=== PATIENT | male | born 1950 | race Caucasian/White ===

== ENCOUNTER 2018-03-11 15:11 | Outpatient (REF) | payer MEDICARE, SELFPAY ==
[2018-03-11 19:50] LABS: ALT 24 U/L (12-78); AST 20 U/L (15-37); Albumin 3.7 g/dL (3.4-5.0); Alkaline Phosphatase 76 U/L (46-116); Anion Gap 12.8 mmol/L (3-11); BUN 28 mg/dL (7-18); Bilirubin, Total 0.7 mg/dL (0.2-1.0); CO2 24.2 mmol/L (21.0-32.0); CREATININE 1.42 mg/dL (0.70-1.30); Calcium 9.7 mg/dL (8.5-10.1); Chloride 102 mmol/L (98-107); Estimated GFR 49.43 (mL/min/1.73m2); Glucose 184 mg/dL (70-100); Potassium 4.4 mmol/L (3.5-5.1); Sodium 139 mmol/L (136-145)
[2018-03-12 17:12] LABS: COMMENT (LAB VIEW ONLY) 400.22 mg/dL; Microalb ug/mg Crea 18.4 ug/mg Cr
== END 2018-03-11 15:31 ==
LOC: NCHCN 15:11
PROVIDERS: PCP Physician Assistant Medical; Visit Provider Physician Assistant Medical
DX: N28.9 Disorder of kidney and ureter, unspecified (principal); R94.5 Abnormal results of liver function studies
CPT/HCPCS: 80053; 82043; 82570; 87086

== ENCOUNTER 2018-03-13 14:51 | Outpatient (REF) | payer MEDICARE, SELFPAY ==
[2018-03-13 20:00] LABS: Epithelial Cells Few HPF (Negative); RBC Negative (0-2)
[2018-03-13 20:01] LABS: Bacteria Negative HPF (Negative); C & S Indicated? Yes; Casts Negative LPF (Negative); Crystals Few Amorphous HPF (Negative); Mucus Trace (Negative)
== END 2018-03-13 15:11 ==
LOC: NCHCN 14:51
PROVIDERS: PCP Physician Assistant Medical; Visit Provider Physician Assistant Medical
DX: R31.9 Hematuria, unspecified (principal)
CPT/HCPCS: 81015; 87086

== ENCOUNTER → 2018-03-19 14:20 | Outpatient (BNVA) | payer MEDICARE, SELFPAY | PROVIDERS: PCP Physician Assistant Medical; Referring Provider Physician Assistant Medical; Visit Provider Nurse Practitioner Gerontology | DX: R31.29 Other microscopic hematuria (principal); E11.9 Type 2 diabetes mellitus without complications | CPT/HCPCS: 81003; 99204; 99215 ==

== ENCOUNTER 2019-03-25 17:22 | Outpatient (REF) | payer MEDICARE, SELFPAY ==
[2019-03-25 20:10] LABS: Anion Gap 10.5 mmol/L (3-11); BUN 21 mg/dL (7-18); CO2 27.5 mmol/L (21.0-32.0); Chloride 104 mmol/L (98-107); Estimated GFR 59.86 (mL/min/1.73m2); Glucose 128 mg/dL (74-106); Potassium 4.1 mmol/L (3.5-5.1); Sodium 142 mmol/L (136-145)
[2019-03-25 20:18] LABS: Hemoglobin A1C 7.5 % (3.8-5.6)
== END 2019-03-25 17:42 ==
LOC: NCHCN 17:22
PROVIDERS: PCP Physician Assistant Medical; Visit Provider Nurse Practitioner Family
DX: E11.9 Type 2 diabetes mellitus without complications (principal); N28.9 Disorder of kidney and ureter, unspecified
CPT/HCPCS: 80048; 83036

== ENCOUNTER 2020-07-13 16:26 | Outpatient (REF) | payer MEDICARE, SELFPAY ==
[2020-07-13 19:20] LABS: COMMENT (LAB VIEW ONLY) 140.08 mg/dL; Microalb ug/mg Crea 5.5 ug/mg Cr
== END 2020-07-13 16:27 | disposition home or self-care (01) ==
LOC: NCHCN 16:26
PROVIDERS: PCP Physician Assistant Medical; Visit Provider Physician Assistant
DX: E11.9 Type 2 diabetes mellitus without complications (principal)
CPT/HCPCS: 82043; 82570

== ENCOUNTER 2020-10-25 17:13 | Outpatient (REF) | payer MEDICARE, SELFPAY ==
[2020-10-25 20:18] LABS: Anion Gap 9.8 mmol/L (3-11); BUN 13 mg/dL (7-18); CO2 27.2 mmol/L (21.0-32.0); CREATININE 1.5 mg/dL (0.70-1.30); Calcium 9.1 mg/dL (8.5-10.1); Chloride 107 mmol/L (98-107); Glucose 218 mg/dL (74-106); Potassium 4.8 mmol/L (3.5-5.1); Sodium 144 mmol/L (136-145)
== END 2020-10-25 17:14 | disposition home or self-care (01) ==
LOC: NCHCN 17:13
PROVIDERS: PCP Physician Assistant Medical; Visit Provider Physician Assistant
DX: E11.9 Type 2 diabetes mellitus without complications (principal)
CPT/HCPCS: 80048

== ENCOUNTER 2021-10-24 19:21 | Outpatient (REF) | payer MEDICARE, SELFPAY ==
[2021-10-24 20:12] LABS: Abs Immature Grans 0.02 10^3/uL (0.0-0.06); Absolute Basophil Count 0.03 10^3/uL (0.0-0.2); Absolute Eosinophil Count 0.15 10^3/uL (0.0-0.7); Absolute Lymphocyte Count 1.47 10^3/uL (1.2-3.4); Absolute Monocyte Count 0.43 10^3/uL (0.1-0.8); Absolute Neutrophil Count 5.58 10^3/uL (1.2-6.7); Basophils % 0.4; HCT 40.9 % (40.0-50.0); Immature Grans % 0.3; Lymphocytes % 19.1; MCH 29.7 pg (27.0-33.0); MCHC 31.8 % (32.0-36.0); MCV 93 fL (80-95); MPV 9.9 fL (8.0-11.0); Monocytes % 5.6; Neutrophils % 72.6; Platelet Count 205 10^3/uL (130-400); RBC 4.38 10^6/uL (4.36-5.78); RDW 14.1 % (11.8-14.1); RDW-SD 48.9 fL; WBC 7.68 10^3/uL (4.4-10.8)
[2021-10-24 20:29] LABS: ALT 33 U/L (16-63); AST 34 U/L (15-37); Albumin 3.6 g/dL (3.4-5.0); Alkaline Phosphatase 80 U/L (46-116); Anion Gap 9.8 mmol/L (3-11); BUN 27 mg/dL (7-18); Bilirubin, Total 0.5 mg/dL (0.2-1.0); CO2 26.2 mmol/L (21.0-32.0); CREATININE 2.2 mg/dL (0.70-1.30); Calcium 9.3 mg/dL (8.5-10.1); Chloride 104 mmol/L (98-107); Estimated GFR 30.85 (mL/min/1.73m2); Glucose 145 mg/dL (74-106); Potassium 4.7 mmol/L (3.5-5.1); Sodium 140 mmol/L (136-145); TSH (W/Ref FT4) 1.53 uIU/mL (0.36-3.74); Total Protein 8.2 g/dL (6.4-8.2); Uric Acid 11.2 mg/dL (3.5-7.2)
[2021-10-25 18:42] LABS: PSA, Screening 0.7 ng/mL (<=6.5)
== END 2021-10-24 19:22 | disposition home or self-care (01) ==
LOC: NCHCN 19:21
PROVIDERS: PCP Physician Assistant Medical; Visit Provider Physician Assistant
DX: E11.9 Type 2 diabetes mellitus without complications (principal); I50.9 Heart failure, unspecified; R63.4 Abnormal weight loss; Z12.5 Encounter for screening for malignant neoplasm of prostate
CPT/HCPCS: 80053; 84153; 84443; 84550; 85025

== ENCOUNTER 2021-11-22 19:01 | Outpatient (REF) | payer MEDICARE, SELFPAY ==
[2021-11-22 21:28] LABS: Anion Gap 9.4 mmol/L (3-11); BUN 53 mg/dL (7-18); CO2 25.6 mmol/L (21.0-32.0); Calcium 9.8 mg/dL (8.5-10.1); Chloride 102 mmol/L (98-107); Estimated GFR 21.26 (mL/min/1.73m2); Glucose 169 mg/dL (74-106); Potassium 4.7 mmol/L (3.5-5.1); Sodium 137 mmol/L (136-145); Uric Acid 10.3 mg/dL (3.5-7.2)
== END 2021-11-22 19:02 | disposition home or self-care (01) ==
LOC: NCHCN 19:01
PROVIDERS: PCP Physician Assistant Medical; Visit Provider Physician Assistant
DX: M10.9 Gout, unspecified (principal); N18.30 Chronic kidney disease, stage 3 unspecified
CPT/HCPCS: 80048; 84550

== ENCOUNTER 2021-12-19 16:52 | Outpatient (REF) | payer MEDICARE, SELFPAY ==
[2021-12-19 18:47] LABS: Anion Gap 11.2 mmol/L (3-11); BUN 31 mg/dL (7-18); CO2 24.8 mmol/L (21.0-32.0); Calcium 9.4 mg/dL (8.5-10.1); Chloride 105 mmol/L (98-107); Estimated GFR 15.52 (mL/min/1.73m2); Glucose 145 mg/dL (74-106); Potassium 4.9 mmol/L (3.5-5.1); Sodium 141 mmol/L (136-145); Uric Acid 11.1 mg/dL (3.5-7.2)
[2021-12-19 19:14] LABS: CREATININE 3.9 mg/dL (0.70-1.30)
== END 2021-12-19 16:53 | disposition home or self-care (01) ==
LOC: NCHCN 16:52
PROVIDERS: PCP Physician Assistant Medical; Visit Provider Physician Assistant
DX: N18.30 Chronic kidney disease, stage 3 unspecified (principal); M10.9 Gout, unspecified
CPT/HCPCS: 80048; 84550

== ENCOUNTER 2023-02-26 15:29 | Outpatient (REF) | payer MEDICARE, SELFPAY ==
[2023-02-26 19:55] LABS: ALT 43 U/L (16-63); AST 29 U/L (15-37); Albumin 3.9 g/dL (3.4-5.0); Alkaline Phosphatase 83 U/L (46-116); BUN 31 mg/dL (7-18); Bilirubin, Total 0.7 mg/dL (0.2-1.0); CREATININE 1.8 mg/dL (0.70-1.30); Chloride 103 mmol/L (98-107); Estimated GFR 39.01 (mL/min/1.73m2); Glucose 231 mg/dL (74-106); Potassium 4.3 mmol/L (3.5-5.1); Sodium 138 mmol/L (136-145); Total Protein 8.5 g/dL (6.4-8.2)
[2023-02-26 20:38] LABS: Hemoglobin A1C 6.9 % (<5.7)
[2023-02-27 19:33] LABS: Hepatitis C Ab w Rflx HCV PCR Negative (Negative)
== END 2023-02-26 15:30 | disposition home or self-care (01) ==
LOC: NCHCN 15:29
PROVIDERS: PCP Physician Assistant Medical; Visit Provider Physician Assistant
DX: E11.9 Type 2 diabetes mellitus without complications (principal); N18.30 Chronic kidney disease, stage 3 unspecified; Z11.59 Encounter for screening for other viral diseases
CPT/HCPCS: 80053; 86803; 83036

== ENCOUNTER 2024-01-15 15:22 | Outpatient (REF) | payer MEDICARE, SELFPAY ==
[2024-01-15 20:07] LABS: Abs Immature Grans 0.02 10^3/uL (0.0-0.06); Absolute Basophil Count 0.05 10^3/uL (0.0-0.2); Absolute Eosinophil Count 0.22 10^3/uL (0.0-0.7); Absolute Lymphocyte Count 1.16 10^3/uL (1.2-3.4); Absolute Monocyte Count 0.46 10^3/uL (0.1-0.8); Absolute Neutrophil Count 6.74 10^3/uL (1.2-6.7); Basophils % 0.6 %; Eosinophils % 2.5 %; HGB 14.3 g/dL (13.5-17.5); Immature Grans % 0.2 %; Lymphocytes % 13.4 %; MCH 31.1 pg (27.0-33.0); MCHC 33.3 % (32.0-36.0); MCV 94 fL (80-95); MPV 10.2 fL (8.0-11.0); Monocytes % 5.3 %; Platelet Count 221 10^3/uL (130-400); RDW 14.1 % (11.8-14.1); RDW-SD 47.8 fL; WBC 8.65 10^3/uL (4.4-10.8)
[2024-01-15 20:21] LABS: ALT 34 U/L (16-63); AST 29 U/L (15-37); Albumin 3.7 g/dL (3.4-5.0); Alkaline Phosphatase 103 U/L (46-116); Anion Gap 12.8 mmol/L (3-11); BUN 22 mg/dL (7-18); CO2 24.2 mmol/L (21.0-32.0); CREATININE 1.8 mg/dL (0.70-1.30); Calcium 9.3 mg/dL (8.5-10.1); Chloride 106 mmol/L (98-107); Estimated GFR 38.77 (mL/min/1.73m2); Glucose 267 mg/dL (74-106); Potassium 4.5 mmol/L (3.5-5.1); Sodium 143 mmol/L (136-145)
== END 2024-01-15 15:23 | disposition home or self-care (01) ==
LOC: NCHCN 15:22
PROVIDERS: PCP Physician Assistant Medical; Visit Provider Physician Assistant
DX: N18.30 Chronic kidney disease, stage 3 unspecified (principal)
CPT/HCPCS: 80053; 85025